=== PATIENT | male | born 1970 | race Caucasian/White ===

== ENCOUNTER 2019-06-29 20:25 | Observation (INO) ==
[2019-06-29] MEDS ORDERED: MORPHINE IV ONE (21:48)
[2019-06-29] MEDS ORDERED: ZOFRAN IV ONE (21:48)
[2019-06-29] MEDS ORDERED: ASPIRIN PO ONE (21:48)
[2019-06-29] MEDS ORDERED: NITROGLYCERIN SL ONE (21:49)
[2019-06-29 22:00] LABS: BASO# 0.06 X1000 (0.0-0.2); BASO% 0.6 % (0.0-0.8); EOS% 6.2 % (0.0-10.0); HEMATOCRIT 43.2 % (42.0-52.0); HEMOGLOBIN 14.3 g/dL (14.0-18.0); IMM GRAN# 0.02 X1000 (0.0-0.04); IMM GRAN% 0.2 % (0.0-0.5); LYMPH# 4.08 X1000 (1.2-3.4); LYMPH% 41.9 % (20.5-51.1); MCH 29.5 PG (27-31); MCHC 33.1 g/dL (33-37); MCV 89.3 FL (81-99); MONO# 0.83 X1000 (0.11-0.59); MONO% 8.5 % (1.7-9.3); MPV 10.5 FL (7.4-10.4); NEUT# 4.15 X1000 (1.4-6.5); NEUT% 42.6 % (42.2-75.2); PLT 283 X1000 (130-400); RBC 4.84 XMIL (4.7-6.1); RDW 13.3 % (11.5-14.5); WBC 9.74 X1000 (4.8-10.8)
--- NOTE | 2019-06-29 22:05 | Diag Imaging Result Doc PS360 ---
EXAM: CHEST-2 VIEWS - 06/29/2019 HISTORY: chest pain TECHNIQUE: Chest two views COMPARISON: None. FINDINGS: Inspiration is mildly shallow. Heart size is normal. The lungs appear essentially clear. There is no consolidation, vascular congestion, pleural effusion, or pneumothorax identified. There are thoracic spondylosis, mild dextroscoliosis, and exaggerated kyphosis noted. IMPRESSION: Mildly shallow inspiration. No other evidence of acute disease. Electronically signed by Aung Goel 06/29/2019 10:03 PM
[2019-06-29 22:14] LABS: AGAP 14; ALB/GLOB RATIO 1.7; ALKALINE PHOSPHATASE 78 U/L (32-122); BUN 20 mg/dL (8-22); CHLORIDE 103 mmol/L (98-107); CK PROFILE 95 U/L (24-204); COSMO 282; CREATININE 1.2 mg/dL (0.7-1.2); ESTIMATED GFR > 60; GLUCOSE 95 mg/dL (70-104); GOT 16 U/L (10-34); GPT 18 U/L (10-44); POTASSIUM 4.3 mmol/L (3.5-5.1); SODIUM 140 mmol/L (136-145); TCO2 23 mmol/L (25-35); TOTAL BILIRUBIN 0.22 mg/dL (0.20-1.00); TOTAL PROTEIN 6.4 g/dL (6.3-8.3)
--- NOTE | 2019-06-29 22:34 | PROVIDER DOCUMENTATION ---
HPI-Chest Pain - General Chief Complaint: Chest Pain Stated Complaint: CHEST PAIN X 1 HOUR Time Seen by Provider: 06/29/19 20:55 Source: patient, family () Allergies/Adverse Reactions: Patient Allergies Allergy/AdvReac Type Severity Reaction Status Date / Time No Known Allergies Allergy Verified 06/29/19 21:36 Home Medications: Home Medication List Medication Instructions Recorded Confirmed Last Taken Type Amoxicillin/Potassium Clav 1 tab PO BID 06/29/19 06/29/19 06/29/19 History [Augmentin 875-125 Tablet] Lisinopril 1 tab PO DAILY 06/29/19 06/29/19 06/29/19 History - History of Present Illness-CP Nature of Presenting Problem: Patient recently diagnosed with HTN, started on lisinopril 1 week ago reports retrosternal; chest pain which started in AM today,. Described as sharp, intermittent but got worse this evening and radiating to the left upper extremity. he was given ASA by his prior to ER visit but patient through it back up immediately. Presently reports squeezing pain on the left chest. He has been taking amoxil for tooth ache for 5 days now. He later admitted to a h/o occasional heart burn with spicy food which often responds to tums but this pain is different per patient Location: reports: other (retrosternal) Chest Pain Radiation: reports: shoulders (left) Quality of Pain: reports: aching, sharp, tightness Onset/Duration: this morning Timing: still present Context/Activities at Onset: reports: none Modifying Factors: improves with: nothing Associated Symptoms: reports: vomiting Nitro Today/Relief: no nitro taken today Aspirin Treatment Today: 81 mg x 1 (but vomited it back immediately) Prior Chest Pain/Cardiac Workup: reports: no prior chest pain Similar Symptoms Previously?: No Recently Seen Here or By Another Healthcare Provider: No Review of Systems - Adult - REVIEW OF SYSTEMS - ADULT Constitutional: reports: no symptoms reported Eyes: reports: no symptoms reported Ears, Nose, Mouth & Throat: reports: no symptoms reported Cardiovascular: reports: see HPI Respiratory: reports: see HPI Gastrointestinal: reports: vomiting Genitourinary: reports: no symptoms reported Musculoskeletal: reports: no symptoms reported Integumentary: reports: no symptoms reported Neurological: reports: no symptoms reported Psychiatric: reports: no symptoms reported Endocrine: reports: no symptoms reported Hematologic/Lymphatic: reports: no symptoms reported Allergic/Immunologic: reports: no symptoms reported Past History - Adult - PAST MEDICAL HISTORY-ADULT Review of Records: reports: Nursing Assessment Review, Medications Reviewed, Social history reviewed & non-contributory. Cardiovascular: reports: HTN Respiratory: reports: denies history Gastrointestinal: reports: denies history Genitourinary: reports: denies history Musculoskeletal: reports: denies history Neurological: reports: denies history Psychiatric: reports: denies history Endocrine/Immune: reports: denies history - FAMILY HISTORY Family History: CAD over 55 yo (Maternal Grandmum of [place] at age 55. He does not know his Dad,s family) - SOCIAL HISTORY Smoking: denies Substance Use: none/never Alcohol Use Frequency: occasionally Living Situation: family Physical Exam-General - PHYSICAL EXAM-ADULT Initial Vital Signs Reviewed: Yes - CONSTITUTIONAL General Appearance: appears well, alert, mild distress - EYES Eyes: PERRL/EOMI - HEAD, EARS, NOSE, MOUTH & THROAT HENMT: normocephalic/atraumatic - NECK Neck: non-tender, full range of motion, supple - RESPIRATORY Respiratory: lungs clear, other (left upper chest wall tenderness) - CARDIOVASCULAR Cardiovascular: regular rate, rhythm, no edema - GASTROINTESTINAL (ABDOMEN) Abdominal Exam: non tender, soft - MUSCULOSKELETAL Back Exam: normal inspection Extremity: normal range of motion - SKIN Integumentary: other (christensen colored macules noted on his back) - NEUROLOGIC 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 - PSYCHIATRIC Psych/Mental Status: oriented x 3 - HEART Score HEART Score: History: Moderately Suspicious HEART Score: ECG: Normal HEART Score: Age: 45-65 Years HEART Score: Risk Factors for Atherosclerotic Disease: 1 or 2 Risk Factors HEART Score: Troponin: 1-3x Normal Limit Total HEART Score:: 4 Progress - PLAN OF CARE/RESULTS Progress/Plan/Lab Results: Vital Signs - 8 hr 06/29/19 20:45 Temperature 98.0 F Pulse Rate 76 Respiratory Rate 20 Blood Pressure 176/107 O2 Sat by Pulse Oximetry 97 Laboratory Results - last 24 hr 06/29/19 06/29/19 06/29/19 21:30 21:30 21:30 WBC 9.74 RBC 4.84 Hgb 14.3 Hct 43.2 MCV 89.3 MCH 29.5 MCHC 33.1 RDW Std Deviation 13.3 Plt Count 283 MPV 10.5 H Immature Gran % (Auto) 0.2 Neut % (Auto) 42.6 Lymph % (Auto) 41.9 [place] % (Auto) 8.5 Eos % (Auto) 6.2 Baso % (Auto) 0.6 Immature Gran # (Auto) 0.02 Neut # (Auto) 4.15 Lymph # (Auto) 4.08 H [place] # (Auto) 0.83 H Eos # (Auto) 0.60 Baso # (Auto) 0.06 Sodium 140 Potassium 4.3 Chloride 103 Carbon Dioxide 23 L Anion Gap 14 BUN 20 Creatinine 1.2 Estimated GFR/1.73 m2 > 60 BUN/Creatinine Ratio 17 Glucose 95 Calculated Osmolality 282 Calcium 9.0 Total Bilirubin 0.22 AST 16 ALT 18 Alkaline Phosphatase 78 Creatine Kinase 95 Troponin T < 0.010 Total Protein 6.4 Albumin 4.0 Globulin 2.4 Albumin/Globulin Ratio 1.7 Orders Category Date Time Status Saline Loc NOW Care 06/29/19 21:45 Active CHEST-2 VIEWS [RAD] Stat Exams 06/29/19 21:45 Completed CBC WITH DIFF [HEME] Stat Lab 06/29/19 21:30 Completed CK PROFILE [SP CHEM] Stat Lab 06/29/19 21:30 Completed COMPREHENSIVE METABOLIC PANEL [CHEM] Stat Lab 06/29/19 21:30 Completed TROPONIN T Stat Lab 06/29/19 21:30 Completed Acetaminophen [Tylenol] Med 06/29/19 23:27 Once 650 mg PO NOW ONE Aspirin Med 06/29/19 21:48 Discontinued 325 mg PO NOW ONE Morphine Med 06/29/19 21:48 Discontinued 4 mg IV NOW ONE Nitroglycerin Sl [Nitroglycerin] Med 06/29/19 21:49 Discontinued 0.4 mg SL NOW ONE Ondansetron [Zofran] Med 06/29/19 21:48 Discontinued 4 mg IV NOW ONE Pulse Oximetry Stat Oth 06/29/19 21:45 Completed EKG [EKG] Stat Ther 06/29/19 20:30 Ordered Result Diagrams: 06/29/19 21:30 06/29/19 21:30 - REASSESSMENT Reassessment #1 Status: improving (Still has left chest pain but improved a lot with nitro and morphine. Now has headache possibly due to nitro. Will give tylenol. He is okay with admission to r/o [place]) - EKG 1 Time of EKG reading by physician:: 21:58 EKG Read and Signed by:: Loreto Fontanez EKG Interpretation (*Must complete 3 of following elements*): Abnormal Rate: 128 Malone: normal QRS: normal Comments: T wave abnormality - XRAY 1 XRAY Study: Chest ( EXAM: CHEST-2 VIEWS - 06/29/2019 HISTORY: chest pain TECHNIQUE: Chest two views COMPARISON: None. FINDINGS: Inspiration is mildly shallow. Heart size is normal. The lungs appear essentially clear. There is no consolidation, vascular congestion, pleural effusion, or pneumothorax identified. There are thoracic spondylosis, mild dextroscoliosis, and exaggerated kyphosis noted. IMPRESSION: Mildly shallow inspiration. No other evidence of acute disease. Electronically signed by Aung Goel 06/29/2019 10:03 PM 06/29/192202 Interpreting Physician: Aung Goel MD Dictated Date/Time: 06/29/192200) - CONSULTS/PCP/HOSPITALIST Notification #1 *Consult/PCP/Hospitalist*: Dr Herrmann Time Discussed: 23:43 Consult Disposition: Admit (Accepts admission to [facility] [place]) Departure - Departure Date of Disposition Decision: 06/29/19 Time of Disposition Decision: 23:45 DIAGNOSIS: Smoker Chest pain Qualifiers: Chest pain type: unspecified Qualified Code(s): R07.9 - Chest pain, unspecified HTN (hypertension) Qualifiers: Hypertension type: essential hypertension Qualified Code(s): I10 - Essential (primary) hypertension Disposition: ADMITTED INPATIENT 09 Certified Medical Emergency: Emergent Condition: Fair Referrals and Follow-Ups: None,PCP [Primary Care Provider] - - Critical Care Note This patient required my direct & personal management of CC.: No Attestation - Physician/ RJ Attestation Patient care was provided by Advanced Practice Provider:: No The physician spent face to face time with patient:: Yes Advanced Practice Provider documentation review:: Supervising physician onsite and consulted in the evaluation and care of this patient. The physician did have a face to face encounter with the patient.
[2019-06-29] MEDS ORDERED: TYLENOL PO ONE (23:27)
--- NOTE | 2019-06-30 00:13 | EKG Report ---
Test Performed on : 06/29/2019 8:43:50 PM Test Reason : chest pain Blood Pressure : / mmHG Vent. Rate : 080 BPM Atrial Rate : 080 BPM P-R Int : 144 ms QRS Dur : 102 ms QT Int : 382 ms P-R-T Axes : 022 003 010 degrees QTc Int : 440 ms Normal sinus rhythm. Normal ECG When compared with ECG of 29-JUN-2019 20:42, (Unconfirmed) No significant change was found Unconfirmed Result
[2019-06-30] MEDS ORDERED: ZOFRAN IV PRN (01:16)
[2019-06-30] MEDS ORDERED: NITROGLYCERIN SL PRN (01:16)
[2019-06-30] MEDS: LOVENOX SUBQ SCH (01:40)
--- NOTE | 2019-06-30 02:44 | HISTORY AND PHYSICAL ---
PRIMARY CARE PHYSICIAN: None. CHIEF COMPLAINT: Chest pain. HISTORY OF PRESENTING ILLNESS: This is a 48-year-old male with a history of hypertension, who had presented to the emergency department with 1-day history of having chest pain. He described it as sharp pain with radiation to left upper extremity. The patient states that it was persistent and subsequently he had come to the emergency department. In the ED, he was evaluated. He was given nitroglycerin. He had some improvement in his chest pain. However, subsequently due to his presenting symptoms he will require admission for further management. At the time of my examination, patient denied any headache, fever, chills, nausea, vomiting, diarrhea, hemoptysis, melena or weight changes, but complained of chest discomfort. PAST MEDICAL HISTORY: Includes hypertension. PAST SURGICAL HISTORY: Left knee surgery. ALLERGIES: No known drug allergies. CURRENT MEDICATIONS: Include lisinopril 10 mg p.o. daily. SOCIAL HISTORY: A 30 pack years history of smoking. Admits to social alcohol use. Denies any illicit drug use. FAMILY HISTORY: No history of coronary artery disease. REVIEW OF SYSTEMS: Fourteen point review of systems as listed in HPI. Other systems negative. PHYSICAL EXAMINATION: GENERAL: Cooperative, friendly male. He is resting comfortably now. VITAL SIGNS: Temperature 98.0 degrees, pulse 76, respirations 20, blood pressure 176/107. HEENT: Atraumatic, normocephalic. Extraocular movements intact. PERRLA. NECK: No masses. CHEST: Clear to auscultation. CARDIOVASCULAR: Regular rate and rhythm. S1, S2. ABDOMEN: Soft. Positive bowel sounds. EXTREMITIES: No edema. NEUROLOGIC: He is awake, alert, oriented x3. GENITOURINARY: No bladder distention. SKIN: Warm. LABORATORIES AND STUDIES: WBCs 9.74, hemoglobin 14.3, hematocrit 43.2, platelets 283,000. Sodium 140, potassium 4.3, chloride 103, CO2 is 23, BUN is 20, creatinine is 1.2, glucose is 95. Chest x- ray, no evidence of any acute disease. Troponin 0.010. ASSESSMENT: A 48-year-old male with a history of hypertension had presented to the emergency department with a 1-day history of having chest pain. We will place the patient for observation for further evaluation and management. 1. Chest pain. 2. Hypertension. 3. Ongoing tobacco abuse. PLAN: 1. We will admit patient to medical floor with telemetry. 2. Continue with cardiac workup. Check EKG, serial cardiac enzymes. Have patient continue on aspirin. We will use sublingual nitroglycerin and p.r.n. morphine for chest pain. 3. We will consult Cardiology. 4. We will monitor blood pressure. Resume antihypertensive agent. 5. Guard Manager patient on smoking cessation. 6. We will put patient on DVT prophylaxis with Lovenox. 7. We will continue to follow, and reassess and make further recommendation based on patient's clinical course. cc: Darren Herrmann MD
--- NOTE | 2019-06-30 11:05 | CONSULTATION ---
DATE OF CONSULTATION: 06/30/2019 IMPRESSION: 1. Left-sided chest discomfort of recent onset, with clinical features predominantly atypical for myocardial ischemia. 2. Hypertension recently diagnosed. 3. Chronic cigarette use. RECOMMENDATIONS: 1. Follow up cardiac enzymes. 2. Check D-dimer, and consider chest CT angiography. 3. Follow up echocardiography. 4. If foregoing negative, favor pursuit of stress testing. HISTORY: This 48-year-old white male with past history of recently diagnosed hypertension and chronic cigarette use was admitted to the emergency room last night for evaluation of chest pain. He relates that while watching a movie around 7 p.m., he started experiencing sharp discomfort, which was stabbing in character in the center of the chest. There was some associated left arm discomfort. Discomfort would last a minute and then resolve, but then recur. Discomfort ultimately became more sustained. Discomfort seemed to be worse with deep breath. He has had some chronic nonproductive cough, but nothing more than this. There has been no fever. Discomfort is not positional and not related to movement of the torso. He has continued having discomfort more persistently, and he came to the emergency room for evaluation. ECG was normal, and troponins thus far have been negative. He generally has not had medical followup. He recently went to a dentist to have a tooth pulled, and was noted to have significant hypertension. He went to urgent care, and was started on lisinopril, and advised to keep a blood pressure diary. This was within the past week. His blood pressures still have remained somewhat elevated on home readings, but present readings in the hospital are normal. 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 His work can be physical at times as he has to move some large blades. He is not very active outside of his work. PAST MEDICAL HISTORY: 1. Recently-diagnosed hypertension. 2. Status post previous knee surgery. 3. Lipid status not known. ALLERGIES: He has no known drug allergies. MEDICATIONS PRIOR TO ADMISSION: As listed. SOCIAL HISTORY: He is . 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 He smokes a pack of cigarettes per day and has done so for about 30 years. He drinks alcohol on a social basis. FAMILY HISTORY: Negative for premature coronary disease in immediate family members. REVIEW OF SYSTEMS: Pulmonary: Noncontributory beyond history of present illness. Gastrointestinal: Noncontributory beyond history of present illness. Constitutional: Noncontributory beyond history of present illness. Remainder of review of systems is negative/noncontributory beyond history of present illness with 14 total systems reviewed. PHYSICAL EXAMINATION: General: This is well-developed white male in no distress on room air. Vital Signs: Blood pressure 137/82, heart rate 64, oxygen saturation 98% on room air. HEENT: Extraocular movements appear intact. Mucous membranes are moist. Neck: Supple without jugular venous distention. There are no carotid bruits. Chest: Clear to auscultation bilaterally. Cardiac: Regular rate and rhythm without appreciable murmur or gallop. Abdomen: Soft. Bowel sounds are normal. Extremities: Without edema. Peripheral pulses are intact symmetrically without delay. Neurologic: He is alert and fully oriented. Speech is fluent. He moves all 4 extremities equally well. Skin: Warm, dry. Psychiatric: His mood is appropriate. IMAGING: A 12-lead EKG demonstrates normal sinus rhythm and is within normal limits. Chest x-ray is reviewed and demonstrates no infiltrates and normal cardiomediastinal silhouette. LABORATORY DATA: Includes a white blood cell count of 9.74, hematocrit 43.2, hemoglobin 14.3, platelet count 283,000. Sodium 140, potassium 4.3, chloride 103, carbon dioxide 23, BUN 20, creatinine 1.2, glucose 95. Initial troponin less than 0.01. Followup troponin less 0.01. Initial CPK 95, followup CPK 90. cc: Yannick Powell MD
[2019-06-30] MEDS: PRILOSEC PO SCH (11:28)
[2019-06-30] MEDS: PRINIVIL PO SCH (11:28)
[2019-06-30] MEDS: ASPIRIN PO SCH (11:28)
--- NOTE | 2019-06-30 12:15 | Diag Imaging Result Doc PS360 ---
EXAM: CT ANGIOGRM PULMONARY ARTERIES HISTORY: chest pain TECHNIQUE: CT chest with intravenous contrast. Pulmonary arterial protocol with MIP images. COMPARISON: None. FINDINGS: Normal opacification of the pulmonary arteries and their branches. No aortic aneurysm or dissection. No cardiomegaly. No pleural effusions. No enlarged lymph nodes. No consolidation. No bronchiectasis. Minimal basilar atelectasis. Limited images through the upper abdomen reveal a 1.9 x 2.7 cm right adrenal nodule. IMPRESSION: No pulmonary emboli. This exam was performed using automated exposure control, adjustment of mA or kV according to patient size, and/or use of iterative reconstruction technique. Electronically signed by Austin Adams 06/30/2019 12:13 PM
[2019-06-30] MEDS: TYLENOL PO PRN (15:40)
[2019-06-30] MEDS ORDERED: MORPHINE IV ONE (21:33)
[2019-07-01] MEDS: LOVENOX SUBQ SCH (07:39)
[2019-07-01] MEDS: PRILOSEC PO SCH (07:39)
[2019-07-01] MEDS ORDERED: LEXISCAN ONE (08:47)
[2019-07-01] MEDS: PRINIVIL PO SCH (09:35)
[2019-07-01] MEDS: ASPIRIN PO SCH (09:35)
--- NOTE | 2019-07-01 09:41 | ECHO REPORT ---
ORDER DATE: 06/30/2019 MEASUREMENTS: Septal thickness 0.9, left ventricular internal diameter in diastole 5.0, posterior wall thickness 0.9, left ventricular internal diameter in systole 2.9, aortic root 3.8, left atrium 3.9. SUMMARY: 1. Adequate quality study. 2. Aortic valve is trileaflet and opens normally on 2-dimensional images. Peak gradient across the aortic valve is approximately 10 mmHg. Mitral, tricuspid, and pulmonic valves are without evidence of structural abnormality, with trace mitral regurgitation, trace tricuspid regurgitation, and trace pulmonic insufficiency. The aortic root is normal size. 3. Normal left ventricle dimensions demonstrated. The estimated left ventricular ejection fraction appears to be at least 65%. No regional wall motion abnormality is evident. Doppler suggests grade 1 left ventricular diastolic dysfunction. The left atrium is upper normal in size. The right atrium and right ventricle are normal in size with normal right ventricular systolic function. 4. No pericardial effusion. 5. Appearance of the inferior cava suggests normal central venous pressure. cc: MD Josef Conte MD
[2019-07-01] MEDS: TYLENOL PO PRN (15:11)
[2019-07-01 15:56] VITALS: BP 152/86
--- NOTE | 2019-07-01 18:47 | Diag Imaging Result Document ---
PROCEDURE NAME: MYOCARDIAL PERF SCAN, STR/REST - 07/01/2019 STUDY: Rest/stress treadmill exercise myocardial perfusion study. INDICATION: Patient with chest discomfort. DESCRIPTION: The patient came into the nuclear lab and received rest injection of technetium 99 sestamibi 14.4 mCi. Multiple tomographic views of the cardiac structures were obtained at rest. Subsequently, the patient underwent a treadmill exercise protocol. At peak exercise he was injected with technetium 99 sestamibi 41.5 mCi. Multiple tomographic views of the cardiac structures were obtained following the completion of the protocol. SUMMARY OF THE ELECTROCARDIOGRAPHIC PORTION OF THE STUDY: Resting ECG showed sinus rhythm with a resting rate of 64 beats per minute. Resting blood pressure is 142/96. During the exercise protocol, the patient's heart rate increased to a maximum 153 beats per minute, that represents 88% of maximum predicted heart rate for the patient's age. The patient completed 8 minutes and 20 seconds on the treadmill, completing two stages of the protocol and walking for 2 minutes and 20 seconds into the third stage. Workload achieved is 10.10 METS. The test was terminated due to fatigue and achievement of adequate heart rate. Peak exercise ECG shows sinus tachycardia without any ischemic changes. The patient reported no chest pain, shortness of breath, or palpitations. The patient was injected with radiotracer one minute prior to termination of exercise. Immediately after termination of exercise, blood pressure was recorded again and the systolic blood pressure was 260/96. That was a markedly hypertensive response. The patient was observed for eight minutes after the completion of exercise and the heart rate and blood pressure returned back to baseline. Last blood pressure recorded was 165/96 and the last heart rate was 91 beats per minute. ECG showed no ischemic changes during the recovery phase. In summary, the electrocardiographic response to exercise is negative for ischemia. The patient developed a markedly hypertensive response. Workload is 10.10 METS. Level of stress based on double product of peak systolic blood pressure x peak heart rate is very high at 39,780. Exercise capacity is decreased by 20%. SUMMARY OF THE MYOCARDIAL PERFUSION PORTION OF THE STUDY: Poststress tomographic views of the left ventricle showed normal homogeneous distribution of radiotracer throughout the entire left ventricular myocardium. There was no evidence of any postexercise defect. The rest images showed normal perfusion. Polar plots revealed the same. There is no convincing evidence of any inducible ischemia nor myocardial scar. Gated SPECT shows preserved ejection fraction of 73%, normal ventricular volumes, and no wall motion abnormality. The lung/heart ratio is normal at 0.31. The TID is normal at 0.7. SUMMARY: This study shows: 1. "Normal" electrocardiographic response to exercise. The patient achieved a workload of 10.10 METS, 88% of maximum predicted heart rate for his age. The level of stress was high based on double product of peak systolic blood pressure x peak heart rate equal to 39,000. Exercise capacity is decreased by 20%. No chest pain reported. Markedly hypertensive response identified. 2. Normal poststress myocardial perfusion scan. There is no scintigraphic evidence of exercise induced myocardial ischemia. 3. Normal left ventricular systolic function with ejection fraction of 73% with normal ventricular volumes and no wall motion abnormality. This study suggests low risk for ischemic events. I strongly recommend evaluation for severe hypertension, possibly renal artery stenosis if the clinical picture is consistent with it, consider doing a CT of the renal arteries or similar evaluation. cc: MD Josef Alas MD
--- NOTE | 2019-07-02 09:51 | DISCHARGE SUMMARY ---
ADMISSION DATE: 06/29/2019 DISCHARGE DATE: 07/01/2019 DISCHARGE DIAGNOSES: 1. Chest pain, atypical. 2. Recent diagnosis of hypertension. 3. Tobacco use and abuse. PROCEDURES PERFORMED: 1. Chest x-ray dated 06/29/2019. Impression: Mildly shallow inspiration, no other evidence of acute disease. 2. Echocardiogram dated 06/30/2019. Impression: Normal left ventricular function, ejection fraction 65%. No regional wall motion abnormality. Doppler suggests grade 1 left ventricular diastolic dysfunction. The right atrium and right ventricle are normal in size with normal right ventricular systolic function. 3. CT angiogram of the lung dated 06/30/2019. Impression: No pulmonary emboli, no aortic aneurysm or dissection, no cardiomegaly, no pleural effusion, no enlarged lymph nodes, no consolidation, no bronchiectasis. 4. A stress test dated 07/01/2019, pending report but Cardiology Department states that it has been normal. HOSPITAL COURSE: A 48-year-old male with a past medical history of hypertension, presented to the emergency department with 1-day history of chest pain, sharp, radiating to the left upper extremity. He received some nitroglycerin in the emergency department and apparently that improved his chest pain. The patient was admitted to evaluate the nature of this pain. The x-ray was negative as well as the CT angiogram. Echocardiogram showed a normal ejection fraction with wall motion and also right atrial and ventricular function. Cardiology Department evaluated this patient and they have recommended to do a stress test which is negative for an acute coronary syndrome. I had a large conversation with the patient and that the pain is much better, he is a smoker and I have recommended to stop smoking and also to control his blood pressure. He does not have a primary care doctor and he takes only 10 mg of lisinopril on a daily basis, which I have increased to 20, and also I will add lisinopril 5 daily. I talked to the patient and the , which is at the bedside, that they need to continue taking the blood pressure at home and document that, so they can go to his doctor and discuss about it. They seem to understand. He is completely alert and oriented x3. He is able to ambulate. He is not having any issues at this moment. PHYSICAL EXAMINATION: Vital signs: Temperature 98.6 degrees, pulse 77, respiratory rate 21, blood pressure 152/86, oxygen saturation 96 on room air. HEENT: Head normocephalic, no trauma. PERRLA. Neck: Supple. No JVD. No masses. Central trachea. Chest: Clear to auscultation. No wheezing. No rales. Abdomen: Soft, nontender, nondistended. No hepatosplenomegaly. Extremities: No edema, no clubbing, no cyanosis. Neurological: The patient is alert and oriented x3. No focal deficits. LABORATORY DATA: CBC from yesterday: WBC 9.7, hemoglobin 14.3, hematocrit 43.2, platelet count 283,000. D-dimer less than 0.27. Sodium 140, potassium 4.3, chloride 103, bicarbonate 23, BUN 20, creatinine 1.2, glucose 95, calcium 9. AST 16, ALT 18, alkaline phosphatase 7.8. Troponins negative x3. CRP 0.3. CK level is normal at between 71 and 95. DISCHARGE MEDICATIONS: 1. Amlodipine 5 mg p.o. daily. 2. Lisinopril 20 mg p.o. daily. 3. Omeprazole 20 mg p.o. daily. We have recommended to stop smoking and monitor his blood pressure. FOLLOWUP: Follow up with his primary care doctor. I gave him enough treatment for at least 3 months. TIME SPENT: Time discharging this patient, 20 minutes. cc: Franko Skelton MD
== END 2019-07-01 17:52 | disposition home or self-care (01) ==
LOC: ED 20:25 → INTOOBSV 20:26 → SUATTDRO 06-30 01:06 → 4N 06-30 01:06
PROVIDERS: ATTEND Internal Medicine